=== PATIENT | female | born 1950 | race Caucasian/White ===

== ENCOUNTER 2022-03-01 12:58 | Emergency (ER) | payer MEDICARE ==
[2022-03-01] MEDS ORDERED: Aspirin Chewable 81 MG TAB ONE (14:45)
== END 2022-03-01 14:50 | disposition home or self-care (01) ==
LOC: CSHERS 12:58
DX: S93.402A Sprain of unspecified ligament of left ankle, initial encounter (principal); G45.9 Transient cerebral ischemic attack, unspecified; J44.9 Chronic obstructive pulmonary disease, unspecified; E78.00 Pure hypercholesterolemia, unspecified; F17.210 Nicotine dependence, cigarettes, uncomplicated; I12.9 Hypertensive chronic kidney disease with stage 1 through stage 4 chronic kidney disease, or unspecified chronic kidney disease; N18.9 Chronic kidney disease, unspecified; W19.XXXA Unspecified fall, initial encounter
CPT/HCPCS: 70450